=== PATIENT | female | born 1990 | race Hispanic/Latino ===

== ENCOUNTER 2017-09-06 22:07 | Emergency (ER) | payer BC ==
[2017-09-06 22:34] VITALS: BP 120/78; RESP 20
[2017-09-06] MEDS ORDERED: Promethazine/Cod 6.25mg-10mg/5ml Syr UD PO STA (23:00)
[2017-09-06] MEDS ORDERED: Albuterol 0.083% Inhal Sol (2.5 mg/3 mL) UD IH STA (23:00)
--- NOTE | 2017-09-06 23:01 | C.PDOC ---
History Of Present Illness 27 year old female, with no significant PMHx, presents to the ED for evaluation of fever, chills, and generalized body aches which gradually developed over the past 3 days. Patient was evaluated by her PMD and prescribed Z-pack for a throat infection. Patient states she was unable to sleep last night due to high fever and body aches and presents to the ED for further evaluation. She denies lethargy, drooling, neck pain, rash, chest pain, shortness of breath, abdominal pain, vomiting and diarrhea. Time Seen by Provider: 09/06/17 22:22 Chief Complaint (Nursing): Cough, Cold, Congestion History Per: Patient Onset/Duration Of Symptoms: Days (3), Gradual Current Symptoms Are (Timing): Still Present Sick Contacts (Context): None Associated Symptoms: Fever, Chills. denies: Vomiting, Diarrhea Ear Symptoms: Bilateral: None Additional History Per: Patient Past Medical History Reviewed: Historical Data, Nursing Documentation, Vital Signs Vital Signs: Last Vital Signs Temp 97.8 F 09/06/17 23:51 Pulse 81 09/06/17 23:51 Resp 20 09/06/17 23:51 BP 120/78 09/06/17 22:21 Pulse Ox 96 09/12/17 21:18 - Medical History PMH: No Chronic Diseases Surgical History: No Surg Hx Family History: States: Unknown Family Hx - Social History Hx Alcohol Use: Yes Hx Substance Use: No - Immunization History Hx Tetanus Toxoid Vaccination: No Hx Influenza Vaccination: No Hx Pneumococcal Vaccination: No Review Of Systems Constitutional: Positive for: Fever, Chills Cardiovascular: Negative for: Chest Pain Respiratory: Negative for: Shortness of Breath Gastrointestinal: Negative for: Vomiting, Abdominal Pain, Diarrhea Musculoskeletal: Positive for: Other (generalized body aches ). Negative for: Neck Pain Skin: Negative for: Rash Physical Exam - Physical Exam Appears: Well, Non-toxic, No Acute Distress, Other (occasional dry cough) Skin: Normal Color, Warm, Dry, No Rash Head: Normacephalic Eye(s): bilateral: PERRL Ear(s): Bilateral: Normal Nose: No Flaring, Discharge (B/L congestion with scant clear rhinorrhea) Oral Mucosa: Moist, No Drooling Tongue: Normal Appearing Lips: Normal Appearing Throat: Erythema (mild B/L), No Exudate, No Drooling Neck: Trachea Midline, Supple Cardiovascular: Rhythm Regular, No Murmur, No JVD Respiratory: No Decreased Breath Sounds, No Accessory Muscle Use, No Stridor, No Wheezing Gastrointestinal/Abdominal: Soft, No Tenderness, No Distention, No Guarding Back: No CVA Tenderness Extremity: Normal ROM, No Deformity, No Swelling Neurological/Psych: Oriented x3, Normal Speech ED Course And Treatment O2 Sat by Pulse Oximetry: 96 (on RA) Pulse Ox Interpretation: Normal - Radiology CXR: Interpreted by Me, Viewed By Me CXR Interpretation: Yes: No Acute Disease Progress Note: CXR and Influenza A/B test ordered and reviewed. Albuterol INH, Motrin PO, Promethazine/Codeine PO, Tamiflu PO and Tylenol PO administered. On re-evaluation, pt reports " feels little better". Fever improved, hemodynamicaly stable. Non-toxic. Tolerate PO well in ED. PulsEOx 96% RA Neck: Supple, (-) meningeal sign. ENT: no acute findings. Lungs: CTA B/L, BS equal B /L. Abd: benign, (-) guaridng, (-) rebound. neuorlogical intact. Influenza A (+). CXR review and appears normal Pt advised. TAmiflu initiated. REf. to F/ u with PMD in 2-3 days for re-eavl. return if any new changes. Disposition Counseled Patient/Family Regarding: Studies Performed, Diagnosis, Need For Followup, Rx Given - Disposition Referrals: [facility] [Outside] Disposition: HOME/ ROUTINE Disposition Time: 23:51 Condition: STABLE Additional Instructions: BEDREST TAKE MEDICATION PRESCRIBED CONTINUE ANTIBIOTIC INITIATED BY PMD BEDREST FOR 2 DAYS FOLLOW UP WITH PMD IN 2-3 DAYS FOR RE-EVALUATION. RETURN TO ED IF ANY WORSENING OR NEW CHANGES. Prescriptions: Ibuprofen [Motrin Tab] 600 mg PO Q6 #20 tab Oseltamivir Phosphate [Tamiflu] 75 mg PO BID #10 capsule Promethazine/Codeine [Phenergan/Codeine Oral Syrup] 10 ml PO BID #80 ml Instructions: Influenza (ED) Forms: [employer] (Kyrgyz) - Clinical Impression Clinical Impression: Influenza A - PA / MEDICAL RECORD ADMINISTRATOR / Resident Statement MD/DO has reviewed & agrees with the documentation as recorded. - Scribe Statement The provider has reviewed the documentation as recorded by the Scribe (Renetta Pierre) All medical record entries made by the Scribe were at my direction and personally dictated by me. I have reviewed the chart and agree that the record accurately reflects my personal performance of the history, physical exam, medical decision making, and the department course for this patient. I have also personally directed, reviewed, and agree with the discharge instructions and disposition.
[2017-09-06] MEDS ORDERED: Albuterol-Ipratrop 3 mg / 0.5 (3 ml) UD ONE (23:09)
[2017-09-06] MEDS ORDERED: Promethazine/Cod 6.25mg-10mg/5ml Syr UD ONE (23:09)
[2017-09-06 23:51] VITALS: PULSE 81; TEMP 97.8
[2017-09-06 23:54] VITALS: O2SAT 96
--- NOTE | 2017-09-07 09:14 | RAD ---
Chest x-ray two views History: Cough. Comparison: None available. Findings: No focal infiltrate or effusion. Heart size within normal limits. Bibasilar breast and nipple shadows. Impression: No focal infiltrate or effusion.
== END 2017-09-07 00:19 | disposition home or self-care (01) ==
LOC: C.ER 22:07
DX: J09.X2 Influenza due to identified novel influenza A virus with other respiratory manifestations (principal)